=== PATIENT | female | born 2000 | race Caucasian/White ===

== ENCOUNTER 2022-02-20 01:59 | Emergency (ER) | payer BC, SELFPAY ==
[2022-02-20 02:03] VITALS: BP 109/70; PULSE 76; RESP 18; TEMP 37; O2SAT 97; BMI 25.1
--- NOTE | 2022-02-20 02:39 | ED_ITS ---
HPI - Extremity Injury (Upper) General Chief Complaint: Extremity Pain/Injury, Upper Stated Complaint: Right Hand Injury Time Seen by Provider: 02/20/22 02:22 History of Present Illness HPI narrative: 21-year-old young woman presenting to the emergency department on advice of a nurse friend that she needs oral antibiotics. She has been struggling with and ingrown nail and swollen finger, the 3rd finger of her left hand over the last couple of weeks. She has been soaking it in Epsom salt water and then applying antibiotic ointment. As she takes offer Band-Aid here she realizes now that it is ruptured and there is purulence soaking the nail area. She does bite her nails. Has also struggled with ingrown nails over the years particularly on the great toe of her right foot. Does not sound as if she has ever had formal surgical resections, wedge or otherwise. Related Data Home Medications Medication Instructions Recorded Confirmed ibuprofen 02/20/22 Previous Rx's Medication Instructions Recorded cephalexin 500 mg capsule 500 mg PO TID 7 days #21 caps 02/20/22 Allergies Allergy/AdvReac Type Severity Reaction Status Date / Time No Known Drug Allergies Allergy Verified 02/20/22 02:06 Review of Systems Status of ROS: Reports: 6 or more systems reviewed and unremarkable except as noted in History and below [facility] Social History Smoking Status: Never smoker How often do you have a drink containing alcohol: never AUDIT-C Alcohol total score: 0 Non-prescribed substance use: denies use Exam Narrative: Exam Narrative: Pleasant. NAD. Carefully casually groomed. Favoring her left hand. Enter the room to see a bandage removed from the 3rd finger of the left hand with purulent moisture around the nail. There is mild swelling more on the ulnar side but relatively diffuse of the distal phalanx of this finger. This ulnar side and nail has also been cut back deeply. Mild calor and mild erythema of surrounding skin. This extends nearly to the distal interphalangeal joint. All fingernails are trimmed her bitten rather short. Toes are also visible the right great toe in particular looks as though she has cut this back along the medial edge. Mild erythema and erosion of the skin consistent with recent swelling here. Const: Vital Signs, click to edit/add: Vital Signs - 24 hr 02/20/22 02:03 Temperature 98.6 F Pulse Rate [Left P ulse Oximeter] 76 Respiratory Rate 18 Blood Pressure [Ri ght Upper Arm] 109/70 Pulse Oximetry 97 Oxygen Delivery Me thod Room Air Documenting provider has reviewed patient's vital signs: yes Course Vital Signs Vital signs: Initial Vital Signs Temperature 98.6 F 02/20/22 02:03 Temperature Source Temporal Artery Scan 02/20/22 02:03 Pulse Rate 76 02/20/22 02:03 Respiratory Rate 18 02/20/22 02:03 Blood Pressure 109/70 02/20/22 02:03 Blood Pressure Mean 83 02/20/22 02:03 Blood Pressure Position Sitting 02/20/22 02:03 Pulse Oximetry 97 02/20/22 02:03 Oxygen Delivery Method 02/20/22 02:03 Vital Signs Temperature 98.6 F 02/20/22 02:03 Pulse Rate 76 02/20/22 02:03 Respiratory Rate 18 02/20/22 02:03 Blood Pressure 109/70 02/20/22 02:03 Pulse Oximetry 97 02/20/22 02:03 Oxygen Delivery Method 02/20/22 02:03 Temperature 98.6 F 02/20/22 02:03 Pulse Rate 76 02/20/22 02:03 Respiratory Rate 18 02/20/22 02:03 Blood Pressure 109/70 02/20/22 02:03 Pulse Oximetry 97 02/20/22 02:03 Oxygen Delivery Method 02/20/22 02:03 MDM - Extremity Injury (Upper) MDM Narrative Medical decision making narrative: Purulence is now released. I think this is the primary necessary treatment. Discharge Plan Discharge Clinical Impression: Paronychia due to ingrown nail Patient Disposition: Home, Self-Care Condition: Improved Additional Instructions: I would continue soaking in warm to hot soapy or Epsom salted water couple of times daily over the next few days. As discussed, if redness progresses to the middle of that 2nd phalanx of the finger, I would start antibiotics; think you have a little leeway now as this little abscess equivalent has ruptured. In the meantime do continue to apply antibiotic ointment. If the toe starts to act up, soak every evening, then find that nail corner and elevate overnight as discussed. Keep trying to stop chewing your nails. Prescriptions: New cephalexin 500 mg capsule 500 mg PO TID 7 Days Qty: 21 0RF No Action ibuprofen Stand Alone Forms: [facility] Info Instructions
--- NOTE | 2022-02-20 03:06 | ED.NURSE ---
ring on finger cut off by keno writer/runner and thrown in garbage ok per pt
== END 2022-02-20 03:05 | disposition home or self-care (01) ==
LOC: ED 02:55
PROVIDERS: Emergency Provider Family Medicine
DX: L03.012 Cellulitis of left finger (principal); L03.031 Cellulitis of right toe; L60.0 Ingrowing nail
CPT/HCPCS: 99283; 99284